=== PATIENT | female | born 2000 | race African-American/Black ===

== ENCOUNTER 2024-02-22 16:08 | Emergency (ER) | payer OTHER ==
[2024-02-22 16:22] VITALS: BP 117/82; PULSE 87; RESP 16; TEMP 98.3; BMI 22.4
[2024-02-22 17:24] LABS: EPI CELLS >36 /uL (0-25.1); HYALINE CASTS 2 /uL (0-3.1); PH,URINE 6.5 (5.0-8.0); URINE APPEARANCE CLOUDY; URINE BACTERIA 988 /uL (0-1359); URINE BILIRUBIN NEGATIVE (NEGATIVE); URINE COLOR YELLOW; URINE GLUCOSE (UA) NEGATIVE (NEGATIVE); URINE KETONE NEGATIVE (NEGATIVE); URINE LEUK ESTERASE 2+ (NEGATIVE); URINE NITRITE NEGATIVE (NEGATIVE); URINE PROTEIN TRACE (NEGATIVE); URINE RBC 288 /uL (0-23.9); URINE WBC 266 /uL (0-25.8)
== END 2024-02-22 18:33 | disposition home or self-care (01) ==
LOC: JER 16:08
DX: R35.0 Frequency of micturition (principal); R11.0 Nausea; N39.0 Urinary tract infection, site not specified; N92.6 Irregular menstruation, unspecified
CPT/HCPCS: 81003; 84703; 87086; 87186; 99283-25